=== PATIENT | female | born 1990 | race African-American/Black ===

== ENCOUNTER 2023-06-01 13:20 | Emergency (ER) | payer SELFPAY ==
[~2023-06-01] VITALS: Ht 162.6 cm; Wt 72.6 kg
[2023-06-01 14:03] VITALS: BP_SYST 125; PULSE 96; RESP 18; TEMP 97.5; O2SAT 100
[2023-06-01 15:14] LABS: COVID19 ANTIGEN SOFIA FIA NEGATIVE (NEGATIVE)
[2023-06-01 15:44] LABS: INFLUENZA TYPE A NEGATIVE (NEGATIVE); INFLUENZA TYPE B NEGATIVE (NEGATIVE)
[2023-06-01] MEDS ORDERED: TRAM50TA2 PO (15:50)
[2023-06-01] MEDS ORDERED: D-ME120S20 PO (15:50)
[2023-06-01] MEDS ORDERED: IBUP-1969 PO (15:50)
[2023-06-01 16:24] VITALS: BP_SYST 125; PULSE 96; RESP 18; TEMP 97.5; O2SAT 100
== END 2023-06-01 16:21 | disposition home or self-care (01) ==
LOC: SED 13:20
DX: J40 Bronchitis, not specified as acute or chronic (principal); B34.9 Viral infection, unspecified; R05.9 Cough, unspecified; M79.10 Myalgia, unspecified site; Z79.899 Other long term (current) drug therapy; Z20.822 Contact with and (suspected) exposure to COVID-19
CPT/HCPCS: 36415; 99283